=== PATIENT | female | born 1985 | race Asian ===

== ENCOUNTER 2022-08-11 07:15 | Emergency (ER) | payer BC, OTHER ==
[~2022-08-11] VITALS: Ht 149.9 cm; Wt 48.5 kg
--- NOTE | 2022-08-11 07:40 | NUR ---
C/O COUGH CONGESTION AND HEADACHE X 4 DAYS. BREATHING EVEN AND UNLABORED. AMBULATED TO BED WITH STEADY GAIT. AAOX4. AWAITING MD ORDERS.
[2022-08-11] MEDS ORDERED: FLUT16SP16 BNOSTRILS (07:56)
[2022-08-11] MEDS ORDERED: PSEU120T83 PO (07:56)
[2022-08-11] MEDS ORDERED: IBUPROFEN 400 MG TABLET PO ONE (08:00)
[2022-08-11] MEDS ORDERED: PSEUDOEPHEDRINE HCL 30 MG TABLET PO ONE (08:00)
[2022-08-11] MEDS ORDERED: PSEUDOEPHEDRINE HCL 30 MG TABLET ONE (08:05)
[2022-08-11] MEDS ORDERED: IBUPROFEN 400 MG TABLET ONE (08:05)
--- NOTE | 2022-08-11 08:19 | NUR ---
Patient discharged to home in stable condition. Written and verbal after care instructions given. Patient verbalizes understanding of instruction.
[2022-08-11 08:20] VITALS: BP 138/89
== END 2022-08-11 08:22 | disposition home or self-care (01) ==
LOC: ER 07:23
DX: J32.9 Chronic sinusitis, unspecified (principal); R51.9 Headache, unspecified; F32.A Depression, unspecified; F41.9 Anxiety disorder, unspecified; Z79.899 Other long term (current) drug therapy

== ENCOUNTER 2022-09-12 02:56 | Emergency (ER) | payer BC, OTHER ==
[~2022-09-12] VITALS: Ht 149.9 cm; Wt 48.1 kg
[~2022-09-12 02:56] MED LIST: FLUT16SP16 BNOSTRILS; PSEU120T83 PO
--- NOTE | 2022-09-12 03:36 | NUR ---
BIBS C/O SORE THROAT, COUGH AT NIGHT, AND NECK ACHE X3 DAYS. PLACED COMFORTABLY IN BED, VITALS CHECKED. PT AAOX4, ABLE TO MAKE NEEDS KNOWN.
--- NOTE | 2022-09-12 05:00 | NUR ---
RAPID STREP SWAB COLLECTED, SENT TO LAB.
--- NOTE | 2022-09-12 05:31 | NUR ---
Patient discharged to home in stable condition. Written and verbal after care instructions given. Patient verbalizes understanding of instruction.
[2022-09-12 05:34] VITALS: BP 119/78
== END 2022-09-12 05:34 | disposition home or self-care (01) ==
LOC: ER 02:57
DX: J02.8 Acute pharyngitis due to other specified organisms (principal); F41.9 Anxiety disorder, unspecified; F32.A Depression, unspecified
CPT/HCPCS: 86403-TC

== ENCOUNTER 2023-07-24 11:42 | Emergency (ER) | payer BC, OTHER ==
[~2023-07-24] VITALS: Ht 147.3 cm; Wt 57.2 kg
[2023-07-24] MEDS ORDERED: ONDANSETRON HCL/PF 4 MG/2 ML VIAL ONE (12:27)
[2023-07-24] MEDS ORDERED: ACETAMINOPHEN ES 500 MG TABLET ONE (12:27)
[2023-07-24 12:29] LABS: BASOPHILS % (AUTO) 0.1 % (0.0-2.0); EOSINOPHILS # (AUTO) 0.4 K/uL (0.0-0.7); EOSINOPHILS % (AUTO) 3.6 % (0.0-6.0); HEMATOCRIT 39 % (33-45); HEMOGLOBIN 13.2 g/dL (11.5-14.8); LYMPHOCYTES % (AUTO) 8.5 % (20.0-44.0); MEAN CORPUSCULAR HEMOGLOBIN 30 PG (26.0-33.0); MEAN CORPUSCULAR HGB CONC 33 g/dl (31.0-36.0); MEAN CORPUSCULAR VOLUME 91 fL (82-100); MONOCYTES # (AUTO) 0.6 K/uL (0.1-1.30); MONOCYTES % (AUTO) 5.1 % (2.0-12.0); NEUTROPHILS # (AUTO) 10.1 K/uL (1.8-8.9); NEUTROPHILS % (AUTO) 82.7 % (43.0-81.0); PLATELET COUNT (AUTO) 205 K/uL (150-450); RED BLOOD CELL COUNT(AUTO) 4.35 MIL/uL (4.0-5.2); RED CELL DISTRIBUTION WIDTH 14.9 % (11.5-15.0); WHITE BLOOD COUNT (AUTO) 12.3 K/uL (4.3-11.0)
[2023-07-24 12:37] LABS: APPEARANCE,URINE CLEAR (CLEAR); BILIRUBIN,URINE NEGATIVE (NEGATIVE); BLOOD, URINE NEGATIVE Ery/uL (NEGATIVE); COLOR,URINE YELLOW (YELLOW); KETONES,URINE TRACE mg/dL (NEGATIVE); LEUKOCYTE ESTERASE ,URINE NEGATIVE (NEGATIVE); NITRITE, URINE NEGATIVE (NEGATIVE); PH,URINE 5.5 (5.0-8.0); PREGNANCY TEST URINE QUAL POSITIVE (NEGATIVE); PROTEIN,URINE NEGATIVE (NEGATIVE); UGLUCOSE NEGATIVE (NEGATIVE); UROBILINOGEN,URINE 0.2 EU/dL (0.2)
[2023-07-24] MEDS: ACETAMINOPHEN ES 500 MG TABLET PO ONE (12:37)
[2023-07-24] MEDS: IV NS 0.9% 1,000 ML BAG IV ONE (12:37)
[2023-07-24] MEDS: ONDANSETRON HCL/PF 4 MG/2 ML VIAL IVP ONE (12:37)
[2023-07-24 12:38] LABS: ADD URINE CULTURE NO; BACTERIA,URINE Rare /HPF (None Seen); RBC,URINE 0-2 /HPF (0-2); SQUAMOUS EPITHELIAL CELL,UR Few /HPF (None Seen); WBC,URINE 0-2 /HPF (0-3)
[2023-07-24 12:48] LABS: CALCIUM, SERUM 9.1 mg/dL (8.5-10.1); CREATININE 0.5 mg/dL (0.6-1.3); POTASSIUM 3.5 mmol/L (3.5-5.1)
[2023-07-24 13:15] LABS: ALBUMIN 3.3 g/dL (3.4-5.0); BILIRUBIN,DIRECT 0.1 mg/dL (0.0-0.2); BILIRUBIN,TOTAL 0.3 mg/dL (0.2-1.0); TOTAL PROTEIN, SERUM 7.7 g/dL (6.4-8.2)
[2023-07-24 13:39] VITALS: BP 133/84; TEMP 98.8; O2SAT 99
[2023-07-25] MEDS ORDERED: METO-295 PO (19:33)
== END 2023-07-24 13:39 | disposition home or self-care (01) ==
LOC: ER 11:42
DX: K80.20 Calculus of gallbladder without cholecystitis without obstruction (principal); R10.2 Pelvic and perineal pain; F41.9 Anxiety disorder, unspecified; F32.A Depression, unspecified; Z79.899 Other long term (current) drug therapy
CPT/HCPCS: 99285; 96374; 76700; 96361; 85025; 80048; 87086; 83690; 80076; 84703; 81001; 36415; 84702; J2405; J7030

== ENCOUNTER 2023-07-25 18:14 | Emergency (ER) | payer BC, OTHER ==
[~2023-07-25] VITALS: Ht 147.3 cm; Wt 57.2 kg
[2023-07-25] MEDS: IV NS 0.9% 1,000 ML BAG IV ONE (19:09)
[2023-07-25] MEDS ORDERED: METO-295 PO (19:33)
[2023-07-25] MEDS ORDERED: ACETAMINOPHEN ES 500 MG TABLET ONE (19:45)
[2023-07-25] MEDS: ACETAMINOPHEN ES 500 MG TABLET PO ONE (19:46)
[2023-07-25 20:18] VITALS: BP 118/78; TEMP 98.7; O2SAT 98
== END 2023-07-25 20:19 | disposition home or self-care (01) ==
LOC: ER 18:14
DX: K80.20 Calculus of gallbladder without cholecystitis without obstruction (principal); F41.9 Anxiety disorder, unspecified; F32.A Depression, unspecified
CPT/HCPCS: 99283; 96360; J7030; A4223

== ENCOUNTER 2024-02-04 11:41 | Outpatient (CLI) | payer BC, OTHER ==
[~2024-02-04 11:41] MED LIST changes: +METO-295 PO
[2024-02-04 13:40] LABS: BASOPHILS % (AUTO) 0.3 % (0.0-2.0); EOSINOPHILS # (AUTO) 0.3 K/uL (0.0-0.7); EOSINOPHILS % (AUTO) 5.1 % (0.0-6.0); HEMATOCRIT 47 % (33-45); HEMOGLOBIN 15.7 g/dL (11.5-14.8); MEAN CORPUSCULAR HEMOGLOBIN 32 PG (26.0-33.0); MEAN CORPUSCULAR HGB CONC 33 g/dl (31.0-36.0); MEAN CORPUSCULAR VOLUME 97 fL (82-100); MONOCYTES # (AUTO) 0.3 K/uL (0.1-1.30); MONOCYTES % (AUTO) 5.2 % (2.0-12.0); NEUTROPHILS # (AUTO) 3.3 K/uL (1.8-8.9); NEUTROPHILS % (AUTO) 55.4 % (43.0-81.0); PLATELET COUNT (AUTO) 204 K/uL (150-450); RED BLOOD CELL COUNT(AUTO) 4.84 MIL/uL (4.0-5.2); RED CELL DISTRIBUTION WIDTH 13.7 % (11.5-15.0)
[2024-02-04 13:47] LABS: ADD URINE CULTURE YES; APPEARANCE,URINE CLEAR (CLEAR); BACTERIA,URINE Few /HPF (None Seen); BILIRUBIN,URINE NEGATIVE (NEGATIVE); BLOOD, URINE 2+ Ery/uL (NEGATIVE); COLOR,URINE YELLOW (YELLOW); KETONES,URINE NEGATIVE (NEGATIVE); LEUKOCYTE ESTERASE ,URINE 2+ (NEGATIVE); NITRITE, URINE NEGATIVE (NEGATIVE); PROTEIN,URINE NEGATIVE (NEGATIVE); SQUAMOUS EPITHELIAL CELL,UR Rare /HPF (None Seen); UGLUCOSE NEGATIVE (NEGATIVE); UROBILINOGEN,URINE 0.2 EU/dL (0.2)
[2024-02-04 13:54] LABS: INR 0.97 (0.91-1.10); PARTIAL THROMBOPLASTIN TIME 27.6 SEC (24.3-34.3); PROTHROMBIN TIME 10.3 SECS (9.2-11.1)
[2024-02-04 14:00] LABS: CALCIUM, SERUM 9.1 mg/dL (8.5-10.1); CREATININE 0.6 mg/dL (0.6-1.3); POTASSIUM 4.6 mmol/L (3.5-5.1)
== END 2024-02-04 23:59 | disposition home or self-care (01) ==
LOC: LAB 11:41
PROVIDERS: ATTEND Obstetrics & Gynecology
DX: Z98.51 Tubal ligation status (principal)
CPT/HCPCS: 36415; 80048-TC; 81001; 84702-TC; 85025-TC; 85730-TC

== ENCOUNTER → 2024-02-10 | Day surgery (SDC) | payer BC, OTHER ==
[~2024-02-10] MED LIST changes: +ANESTHESIA TRAY IN PYXIS 1 EA TRAY MC ONE; +BACITRACIN ZINC OINT (15 GM) 15 GM TUBE TP ONE; +BUPIVACAINE 0.5 % PF 150 MG/30 ML VIAL ONE; +BUPIVACAINE MPF 0.5% W/EPI INJ 30 ML VIAL ONE; +FENTANYL PF 100MCG/2ML AMPUL ONE; +ROCURONIUM BROMIDE 50 MG/5 ML ONE
[2024-02-10 08:58] LABS: PREGNANCY TEST URINE QUAL NEGATIVE (NEGATIVE)
== END | disposition home or self-care (01) ==
LOC: DS 08:12
PROVIDERS: ATTEND Obstetrics & Gynecology
DX: Z30.2 Encounter for sterilization (principal); N83.8 Other noninflammatory disorders of ovary, fallopian tube and broad ligament; E03.9 Hypothyroidism, unspecified; F41.9 Anxiety disorder, unspecified; F32.A Depression, unspecified; Z79.890 Hormone replacement therapy; Z91.048 Other nonmedicinal substance allergy status; Z98.891 History of uterine scar from previous surgery
CPT/HCPCS: 58670; 84703; J3010; J3490; 88304-TC; J0690; J1885; J2704

== ENCOUNTER 2025-02-16 15:34 | Emergency (ER) | payer BC, OTHER ==
[~2025-02-16] VITALS: Ht 149.9 cm; Wt 59.0 kg
[~2025-02-16 15:34] MED LIST changes: -ANESTHESIA TRAY IN PYXIS 1 EA TRAY MC ONE; -BACITRACIN ZINC OINT (15 GM) 15 GM TUBE TP ONE; -BUPIVACAINE 0.5 % PF 150 MG/30 ML VIAL ONE; -BUPIVACAINE MPF 0.5% W/EPI INJ 30 ML VIAL ONE; -FENTANYL PF 100MCG/2ML AMPUL ONE; -ROCURONIUM BROMIDE 50 MG/5 ML ONE
[2025-02-16 15:42] VITALS: BP 130/88; TEMP 98.1; O2SAT 97
[2025-02-16] MEDS ORDERED: CETI10CA8 PO (16:26)
[2025-02-16] MEDS ORDERED: FLUT16SP16 BNOSTRILS (16:26)
[2025-02-16] MEDS ORDERED: IBUP-1953 PO (16:26)
== END 2025-02-16 16:32 | disposition home or self-care (01) ==
LOC: ER 15:36
DX: J32.9 Chronic sinusitis, unspecified (principal); R51.9 Headache, unspecified; H92.02 Otalgia, left ear; I10 Essential (primary) hypertension; F41.9 Anxiety disorder, unspecified; F32.A Depression, unspecified